=== PATIENT | male | born 1945 | race Caucasian/White ===

== ENCOUNTER 2018-07-29 16:26 | Observation (INO) ==
[2018-07-29] MEDS ORDERED: FUROSEMIDE 100 MG/10 ML VIAL IV STA (20:15)
[2018-07-29] MEDS ORDERED: CLINDAMYCIN INJ 600 MG in PREMIX 1 EACH IV STA (20:15)
[2018-07-29] MEDS ORDERED: ONDANSETRON 4 MG/2 ML VIAL IV STA (20:15)
[2018-07-29 20:33] LABS: Basophils % 0.5 % (0.0-0.8); Eosinophils # 0.1 10*3/uL (0.0-0.87); Eosinophils % 1.4 % (0.00-10.9); Hematocrit 32.8 VOL% (42.0-52.0); Hemoglobin 10.6 GM/DL (14.0-18.0); Immature Granulocytes % 0.3 %; Immature Granulocytes Absolute 0.02 #; Lymphocytes # 1.4 10*3/uL (1.4-4.0); Lymphocytes % 21.8 % (21.2-54.2); Mean Corpuscular HGB Conc 32.3 GM/DL (32-36); Mean Corpuscular Volume 103.1 FL (87-102); Mean Platelet Volume 10.2 FL (9.6-12.0); Monocytes % 8.6 % (1.7-12.7); Neutrophils % 67.4 % (38.7-73.9); Platelet Count 179 T/CUMM (130-400); Red Blood Count 3.18 MC/CUMM (3.8-5.5); Red Cell Distribution Width 14.2 % (9.3-17.3); White Blood Count 6.4 T/CUMM (4-12)
[2018-07-29 20:43] LABS: INR 1.4; PT Patient Result 14.7 SECS; Partial Thromboplastin Time 30.2 SECS (0-40)
[2018-07-29 20:56] LABS: Albumin 3.3 G/DL (3.4-5.0); Bilirubin,Total 1.6 MG/DL (0.2-1.0); Calcium 9.1 MG/DL (8.5-10.1); Osmolality,Calculated 281.4 MOS/KG (273-304); Total Protein 7.2 G/DL (6.4-8.3)
[2018-07-29 21:01] LABS: Troponin I < 0.015 NG/ML (0.00-0.045)
[2018-07-29 22:16] LABS: Apearance,Urine CLEAR (Clear); Bilirubin,Urine Negative (Negative); Blood, Urine Negative (Negative); Glucose,Urine (UA) Negative (Negative); Ketones,Urine Negative (Negative); Nitrite,Urine Negative (Negative); Protein,Urine 30 MG/DL; RBC,Urine 2 /HPF (0-4); Renal Epithelial Cells,Urine Occasional /HPF (<1); Squamous Epithelial Cell,Urine Occasional /HPF (0-10); Urine Color Yellow (Yellow); Urine Specific Gravity 1.013 (1.001-1.035); Urine Urobilinogen < 2.0 EU/DL (0.2-1.0); WBC,Urine 5 /HPF (0-6)
[2018-07-29] MEDS ORDERED: NICOTINE 21 MG/24 HR PATCH TRANSDERM PRN (22:28)
[2018-07-29] MEDS ORDERED: MORPHINE 4 MG/1 ML VIAL IV PRN (22:28)
[2018-07-29] MEDS ORDERED: ACETAMINOPHEN 325 MG TABLET PO PRN (22:28)
[2018-07-29] MEDS ORDERED: diphenhydrAMINE CAP 25 MG CAPSULE PO PRN (22:28)
[2018-07-29] MEDS ORDERED: GLUCAGON 1 MG VIAL IM PRN (22:28)
[2018-07-29] MEDS ORDERED: guaiFENesin/DM ER 600-30 MG TABLET PO PRN (22:28)
[2018-07-29] MEDS ORDERED: ONDANSETRON 4 MG/2 ML VIAL IV PRN (22:28)
[2018-07-29] MEDS ORDERED: DEXTROSE 50% 25 GM/50 ML SYRINGE IV PRN (22:28)
[2018-07-29] MEDS ORDERED: BISACODYL 5 MG TABLET PO PRN (22:28)
[2018-07-30 05:28] LABS: Bilirubin,Total 1.4 MG/DL (0.2-1.0); Calcium 8.6 MG/DL (8.5-10.1); Osmolality,Calculated 286.1 MOS/KG (273-304); Total Protein 6.2 G/DL (6.4-8.3)
[2018-07-30] MEDS: PANTOPRAZOLE 40 MG TABLET PO SCH (09:30)
[2018-07-30] MEDS: FUROSEMIDE 40 MG/4 ML VIAL IV SCH ×2 (09:30→16:29)
[2018-07-30] MEDS: INSULIN REGULAR 100 UNIT/ML SUBCUT SCH ×4 (09:41→21:43)
[2018-07-30] MEDS ORDERED: SKIN HEALING OINT (AQUAPHOR) 50 GM TUBE TOP PRN (11:38)
[2018-07-30] MEDS: ZINC OXIDE PASTE 113 GM TUBE TOP SCH ×2 (18:13→21:44)
[2018-07-31 05:09] LABS: INR 1.3; PT Patient Result 13.8 SECS
[2018-07-31] MEDS: INSULIN REGULAR 100 UNIT/ML SUBCUT SCH ×2 (07:53→13:20)
[2018-07-31] MEDS: ZINC OXIDE PASTE 113 GM TUBE TOP SCH (09:00)
[2018-07-31] MEDS: FUROSEMIDE 40 MG/4 ML VIAL IV SCH (09:00)
[2018-07-31] MEDS: PANTOPRAZOLE 40 MG TABLET PO SCH (09:00)
[2018-07-31 13:47] VITALS: BP 171/85
[2018-07-31] MEDS ORDERED: PYRIDOSTIGMINE 60 MG TABLET PO SCH (15:00)
[2018-07-31] MEDS ORDERED: ATENOLOL 50 MG TABLET PO SCH (21:00)
[2018-07-31] MEDS ORDERED: SPIRONOLACTONE 25 MG TABLET PO SCH (21:00)
[2018-07-31] MEDS ORDERED: MINOXIDIL 2.5 MG TABLET PO SCH (21:00)
[2018-07-31] MEDS ORDERED: IRON (CARBONYL)/VIT C/B12/FA TABLET PO SCH (21:00)
[2018-07-31] MEDS ORDERED: metFORMIN 500 MG TABLET PO SCH (21:00)
[2018-07-31] MEDS ORDERED: BUMETANIDE 1 MG TABLET PO SCH (21:00)
[2018-08-01] MEDS ORDERED: COENZYME Q10 100 MG CAPSULE PO SCH (09:00)
[2018-08-01] MEDS ORDERED: WARFARIN 3 MG TABLET PO SCH (09:00)
[2018-08-01] MEDS ORDERED: TERAZOSIN 5 MG CAPSULE PO SCH (09:00)
[2018-08-01] MEDS ORDERED: LEVOTHYROXINE 50 MCG TABLET PO SCH (09:00)
[2018-08-06] MEDS ORDERED: NON-FORMULARY MEDICATION (Dulaglutide [Trulicity] 0.75 MG) SUBCUT SCH (11:58)
== END 2018-07-31 15:07 | disposition home health service (06) ==
LOC: N.EDINP 16:26 → N.ED 16:26 → SUATTDRO 22:28 → N.TELES 23:12
PROVIDERS: ADMIT Internal Medicine; ATTEND Family Medicine